=== PATIENT | male | born 1970 | race Caucasian/White ===

== ENCOUNTER 2019-05-24 22:54 | Emergency (ER) ==
[2019-05-24 23:13] VITALS: BP 164/92; TEMP 98.4; BMI 35.4
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
== END 2019-05-25 00:37 | disposition home or self-care (01) ==
LOC: ED 22:54
DX: S30.0XXA Contusion of lower back and pelvis, initial encounter (principal); V89.2XXA Person injured in unspecified motor-vehicle accident, traffic, initial encounter
CPT/HCPCS: 99282